=== PATIENT | male | born 1995 | race Caucasian/White ===

== ENCOUNTER 2018-02-23 16:01 | Emergency (ER) | payer MEDICAID ==
[~2018-02-23] VITALS: Ht 172.7 cm; Wt 59.0 kg
[2018-02-23 16:29] VITALS: BP 126/72
[2018-02-23] MEDS ORDERED: predniSONE 20 MG TAB PO ONE (21:30)
[2018-02-23] MEDS ORDERED: IBUPROFEN 800 MG TAB PO ONE (21:30)
== END 2018-02-23 20:59 | disposition home or self-care (01) ==
LOC: ER 16:05
DX: S93.402A Sprain of unspecified ligament of left ankle, initial encounter (principal); S43.402A Unspecified sprain of left shoulder joint, initial encounter; M62.838 Other muscle spasm; V49.49XA Driver injured in collision with other motor vehicles in traffic accident, initial encounter; Y93.I9 Activity, other involving external motion; Y92.488 Other paved roadways as the place of occurrence of the external cause; Y99.8 Other external cause status
CPT/HCPCS: 73030; 73610; 99283; J7512

== ENCOUNTER 2018-10-12 15:28 | Inpatient (IN) | payer MEDICAID ==
[~2018-10-12] VITALS: Ht 172.7 cm; Wt 54.4 kg
[2018-10-12] MEDS ORDERED: SODIUM CHLORIDE 0.9% 1,000 ML IV ONE ×2 (16:07)
[2018-10-12 16:44] LABS: Basophils # (auto) 0 uL; Basophils % (auto) 0.5 % (0.0-2.0); Eosinophils # (auto) 0 uL; Eosinophils % (auto) 0.4 % (0.0-7.0); Hematocrit 44.7 % (41.0-53.0); Hemoglobin 15.5 g/dL (13.5-17.5); Lymphocytes # (auto) 1.2 uL; Lymphocytes % (auto) 14.1 % (10.0-50.0); Mean Corpuscular Hgb Conc. 34.6 g/dL (32.0-36.0); Mean Corpuscular Volume 86.5 fL (80.0-100.0); Monocytes # (auto) 0.4 uL; Monocytes % (auto) 4.9 % (0.0-12.0); Neutrophils # (auto) 6.8 uL; Neutrophils % (auto) 80.1 % (37.0-80.0); Nucleated Red Blood Cells % 0.2 %; Platelet Count (auto) 276 10^3/uL (140-450); Red Blood Cells 5.17 10^6/uL (4.5-5.90); Red Cell Distribution Width 13.8 % (11.8-14.3); White Blood Cell 8.5 10^3/uL (4.4-10.8)
[2018-10-12 17:04] LABS: Albumin 4.2 g/dL (3.4-5.0); Calcium 8.3 mg/dL (8.5-10.1); Potassium 3.4 mmol/L (3.5-5.1)
[2018-10-12 17:07] LABS: Bilirubin, Total 0.9 mg/dL (0.2-1.0); Total Protein 7.7 g/dL (6.4-8.2)
[2018-10-12] MEDS ORDERED: InsuLIN REG 1unit/0.01ml Soln (100units/ml) SC ONE (17:15)
[2018-10-12 17:23] LABS: Urine Bacteria NONE SEEN /hpf (None Seen); Urine Blood Negative /uL (Negative); Urine Mucus FEW (None Seen); Urine Specific Gravity 1.034 (1.001-1.035); Urine WBC <1 /hpf (0 - 3)
[2018-10-12] MEDS ORDERED: NICOTINE 21MG/24 HR TOPICAL PATCH TD ONE (18:15)
[2018-10-12] MEDS ORDERED: InsuLIN R (HUMAN) 100 UNITS in SODIUM CHL 0.9% 99 ML IV SCH (18:24)
[2018-10-12] MEDS ORDERED: HYDROcodone-ACET 5/325MG TAB PO PRN (18:30)
[2018-10-12] MEDS ORDERED: MORPHINE SULF INJ 2 MG/ML SYRINGE 1ML IV PRN ×2 (18:30)
[2018-10-12] MEDS ORDERED: ONDANSETRON HCL 4 MG/2 ML VIAL IV PRN (18:30)
[2018-10-12] MEDS ORDERED: ACETAMINOPHEN 500 MG TAB PO PRN (18:30)
[2018-10-12] MEDS ORDERED: NITROGLYCERIN 0.4 MG SL TAB SL PRN (18:30)
[2018-10-12] MEDS ORDERED: InsuLIN REG 1unit/0.01ml Soln (100units/ml) IV ONE (18:30)
[2018-10-12] MEDS ORDERED: DEXTROSE (50%) 50ML SYRG IV PRN (18:30)
[2018-10-12] MEDS: SOD CHL 0.45% WITH 20MEQ KCL 1,000 ML IV SCH (19:30)
[2018-10-12] MEDS: ALPRAZolam 0.25 MG TAB PO PRN (19:31)
[2018-10-12] MEDS: ACCU-CHEK COMFORT CURVE STRIP VI SCH ×4 (20:00→23:52)
[2018-10-12 20:07] LABS: Albumin 3.6 g/dL (3.4-5.0); BUN/Creatinine Ratio 7.7; Calcium 7.4 mg/dL (8.5-10.1); Potassium 3.2 mmol/L (3.5-5.1)
[2018-10-12 20:10] LABS: Bilirubin, Total 0.6 mg/dL (0.2-1.0); Total Protein 6.9 g/dL (6.4-8.2)
[2018-10-12] MEDS: FAMOTIDINE (10MG/ML) 2ML VL IV SCH (22:16)
[2018-10-13] VITALS (8 sets, daily range): BP systolic 95–140; BP diastolic 52–69
[2018-10-13 00:48] LABS: BUN/Creatinine Ratio 9.4; Potassium 3.7 mmol/L (3.5-5.1)
[2018-10-13] MEDS ORDERED: DEXTROSE (50%) 50ML SYRG IV PRN (01:15)
--- NOTE | 2018-10-13 02:05 | NUR ---
Telemetry admit from ER AUSTIN REEVES admitted to Telemetry unit after SBAR received. Patient oriented to Zena Vera, primary RN, unit, room, bed, and unit policies regarding patient care and visiting hours. Patient now on continuous telemetry monitoring, tele box # 9 and telemetry reading on arrival to unit is sinus rhythm. Patient weighed by bedscale and encouraged to call if they need something. All questions and concerns addressed, patient verbalized understanding.
[2018-10-13] MEDS: ACCU-CHEK COMFORT CURVE STRIP VI SCH ×6 (04:07→23:20)
[2018-10-13] MEDS: InsuLIN REG 1unit/0.01ml Soln (100units/ml) SC SCH ×6 (04:07→23:25)
[2018-10-13] MEDS: SOD CHL 0.45% WITH 20MEQ KCL 1,000 ML IV SCH ×3 (05:30→23:20)
--- NOTE | 2018-10-13 07:20 | NUR ---
Opening Shift Note Assumed care of patient, awake and alert. No S/S of distress/SOB or pain. Instructed on POC and to call for assist PRN, will continue to monitor for changes Q1hr and PRN.
[2018-10-13] MEDS: FAMOTIDINE (10MG/ML) 2ML VL IV SCH ×2 (09:44→21:42)
--- NOTE | 2018-10-13 09:45 | NUR ---
AUSTIN REEVES states they want to leave the floor Against Medical Advice (AMA) to go outside and smoke. Patient encouraged to stay on floor and not smoke. Patient advised of the risks and benefits of leaving AMA. Patient verbalized understanding and signed required AMA form.
[2018-10-13 09:52] LABS: BUN/Creatinine Ratio 10.6; Calcium 7.7 mg/dL (8.5-10.1); Potassium 3.5 mmol/L (3.5-5.1)
[2018-10-13 13:30] LABS: BUN/Creatinine Ratio 12.7; Calcium 8.3 mg/dL (8.5-10.1); Potassium 3.2 mmol/L (3.5-5.1)
--- NOTE | 2018-10-13 14:30 | NUR ---
Report given to Yaima VEE.
--- NOTE | 2018-10-13 15:11 | NUR ---
UA SENT TO LAB
--- NOTE | 2018-10-13 15:20 | NUR ---
Assumed care of patient from Melissa VEE. Patient awake and alert x4, sitting up in bed. No pain noted or reported at this time. Updated on plan of care and instructed to call for assistance as needed, pt. verbalized understanding. Bed locked in lowest position, side rails up x2, call light within reach. Will continue to monitor Q1HR or PRN.
--- NOTE | 2018-10-13 15:26 | NUR ---
Nutrition Consult/assessment Notes please see attached link for complete assessment Est. Needs BW [id number] kcal (25-30 kcal/kgBW), 59-70 gms pro (1.0-1.2 gms/kgBW). Will continue to monitor pertinent labs and reassess nutrient need prn Addendum: 10/13/18 at [address] Amended: Links added.
[2018-10-13 15:42] LABS: Urine Bacteria FEW /hpf (None Seen); Urine Blood Negative /uL (Negative); Urine Specific Gravity 1.032 (1.001-1.035); Urine WBC <1 /hpf (0 - 3)
[2018-10-13 15:43] LABS: Alcohol, Urine < 3.0 mg/dL (0-5); Amphetamine Screen, Urine NEGATIVE (NEGATIVE); Barbiturate Scree,Urine NEGATIVE (NEGATIVE); Benzodiazephine Screen, Urine NEGATIVE (NEGATIVE); Cannabinoid Screen, Urine POSITIVE (NEGATIVE); Cocaine Screen, Urine NEGATIVE (NEGATIVE); Opiate Scree,Urine NEGATIVE (NEGATIVE); Phencyclidine Screen, Urine NEGATIVE (NEGATIVE)
--- NOTE | 2018-10-13 16:24 | NUR ---
Provided diabetic teaching. Patient was educated on diabetes medication management and insulin administration. Return demonstration was performed and pt. verbalized understanding.
--- NOTE | 2018-10-13 19:49 | NUR ---
Opening Note Assumed pt care from day shift nurse. Pt is a/ox4 with no s/s of distress or SOB. Pt is currently laying in bed with no complaints and family at bedside. Discussed POC with pt and asked if pt had any questions regarding newly dx of DM; pt stated he did not at this time. Safety measures maintained with call light within reach, bed in lowest position and side rails up. Will continue to monitor for changes q1hr and prn.
--- NOTE | 2018-10-13 20:25 | NUR ---
Elevated Blood Sugar Blood sugar or 403 on 1999 assessment, rechecked; 413. Administered 10 units of regular insulin, pagehanna salguero. Addendum: 10/13/18 at 2216 by KAYLA CRUZ RN RN Hospitalist paged back, at this time after receiving the 10 units of regular insulin, BS is now 299. Hospitalist informed of new blood sugar, no new orders or implementations initiated. Will continue to monitor.
[2018-10-13] MEDS: ALPRAZolam 0.25 MG TAB PO PRN (21:42)
[2018-10-13] MEDS: INSULIN LANTUS (GLARGINE) 1 /0.01ml (100units/ml) SC SCH (21:42)
--- NOTE | 2018-10-13 22:16 | NUR ---
Pt off Unit to Smoke Pt off unit to smoke. AMA to smoke is in chart; instructed pt to come back to unit within 30 minutes. Pt verbalized understanding. Addendum: 10/13/18 at 2243 by KAYLA CRUZ RN RN Pt back on unit
[2018-10-14] MEDS: InsuLIN REG 1unit/0.01ml Soln (100units/ml) SC SCH ×5 (03:29→22:07)
[2018-10-14] MEDS: ACCU-CHEK COMFORT CURVE STRIP VI SCH ×5 (03:29→22:06)
[2018-10-14 05:00] VITALS: BP 106/59
[2018-10-14 06:05] LABS: Basophils # (auto) 0 uL; Basophils % (auto) 0.5 % (0.0-2.0); Eosinophils # (auto) 0.2 uL; Eosinophils % (auto) 2.7 % (0.0-7.0); Hematocrit 37.7 % (41.0-53.0); Hemoglobin 13.1 g/dL (13.5-17.5); Lymphocytes # (auto) 1.8 uL; Lymphocytes % (auto) 29.9 % (10.0-50.0); Mean Corpuscular Hgb Conc. 34.8 g/dL (32.0-36.0); Mean Corpuscular Volume 86.2 fL (80.0-100.0); Monocytes # (auto) 0.6 uL; Monocytes % (auto) 9.5 % (0.0-12.0); Neutrophils # (auto) 3.4 uL; Neutrophils % (auto) 57.4 % (37.0-80.0); Platelet Count (auto) 194 10^3/uL (140-450); Red Blood Cells 4.37 10^6/uL (4.5-5.90); Red Cell Distribution Width 14.1 % (11.8-14.3); White Blood Cell 5.9 10^3/uL (4.4-10.8)
[2018-10-14 06:55] LABS: Calcium 7.9 mg/dL (8.5-10.1)
[2018-10-14 07:00] LABS: Magnesium 2.2 mg/dL (1.6-2.6)
[2018-10-14 07:04] LABS: Potassium 2.9 mmol/L (3.5-5.1)
--- NOTE | 2018-10-14 07:06 | NUR ---
Critical Lab Value Reported Melissa from lab reported potassium value of 2.9 Paged hospitalist, awaiting a call back for further instructions.
[2018-10-14] MEDS: SOD CHL 0.45% WITH 20MEQ KCL 1,000 ML IV SCH (08:09)
[2018-10-14 09:00] VITALS: BP 108/62
--- NOTE | 2018-10-14 09:01 | NUR ---
PT EDUCATED ON INSULIN ADMINISTRATION, QUESTIONS AND CONCERNS ADDRESSED. PT RETURNED DEMONSTRATION ON INSULIN SQ ADMINISTRATION. SMOKING CESSATION COUNSELING. PT IS RECEPTIVE AND COOPERATIVE OF CARE. BED LOCKED AND IN LOWEST POSITION. CALL LIGHT WITHIN REACH. WILL CONTINUE TO MONITOR.
[2018-10-14] MEDS: FAMOTIDINE (10MG/ML) 2ML VL IV SCH ×2 (09:02→22:07)
[2018-10-14] MEDS ORDERED: POTASSIUM CHL 20 Meq TABLET PO ONE (09:30)
[2018-10-14] MEDS ORDERED: DEXTROSE (50%) 50ML SYRG IV PRN (09:45)
[2018-10-14] MEDS ORDERED: POTASSIUM CHL 20MEQ/100ML 100 ML IV ONE (10:00)
[2018-10-14 13:00] VITALS: BP 111/70
[2018-10-14 17:26] VITALS: BP 108/67
--- NOTE | 2018-10-14 19:43 | NUR ---
Opening Note Assumed pt care from day shift nurse. Pt is a/ox4 with no s/s of distress or SOB. Pt is currently sitting up in bed with no complaints accompanied by family members. Discussed POC with pt; pt verbalized understanding. Asked if pt had any additional questions regarding his new DM diagnosis; pt stated he did not. Safety measures maintained with side rails up, bed in lowest position and call light within reach. Will continue to monitor for changes q1hr and prn.
[2018-10-14 21:24] VITALS: BP 115/67
[2018-10-14] MEDS: INSULIN LANTUS (GLARGINE) 1 /0.01ml (100units/ml) SC SCH (22:07)
[2018-10-14] MEDS: ALPRAZolam 0.25 MG TAB PO PRN (22:07)
[2018-10-15 05:28] VITALS: BP 92/51
[2018-10-15] MEDS: InsuLIN REG 1unit/0.01ml Soln (100units/ml) SC SCH ×4 (06:17→21:20)
[2018-10-15] MEDS: ACCU-CHEK COMFORT CURVE STRIP VI SCH ×4 (06:17→21:21)
[2018-10-15 07:18] LABS: Calcium 7.9 mg/dL (8.5-10.1)
[2018-10-15 07:20] LABS: BUN/Creatinine Ratio 27.5
[2018-10-15 07:24] LABS: Potassium 2.9 mmol/L (3.5-5.1)
--- NOTE | 2018-10-15 07:32 | NUR ---
Critical Lab Value Lab reported Potassium value of 2.9. Hospitalist paged and orders were given. Will input orders and endorse to day shift.
[2018-10-15] MEDS ORDERED: POTASSIUM CHL 20MEQ/100ML 100 ML IV SCH (07:45)
[2018-10-15] MEDS ORDERED: POTASSIUM CHL 20 Meq TABLET PO ONE (07:45)
--- NOTE | 2018-10-15 08:24 | NUR ---
Opening Shift Note Assumed care of patient. Patient is awake and alert. No S/S of distress/SOB or pain. Instructed on POC and to call for assist PRN, will continue to monitor. Bed locked in lowest position and bed rails up x2. Call light within reach.
--- NOTE | 2018-10-15 08:50 | NUR ---
Patient off unit to smoke
[2018-10-15 09:22] VITALS: BP 91/52
[2018-10-15] MEDS ORDERED: INSULIN LANTUS (GLARGINE) 1 /0.01ml (100units/ml) SC ONE (10:30)
[2018-10-15] MEDS: FAMOTIDINE (10MG/ML) 2ML VL IV SCH (10:56)
[2018-10-15] MEDS: POTASSIUM CHL 20MEQ/100ML 100 ML IV SCH ×2 (11:33→15:14)
[2018-10-15 12:36] VITALS: BP 113/73
[2018-10-15] MEDS ORDERED: NICOTINE 21MG/24 HR TOPICAL PATCH TD ONE (13:45)
--- NOTE | 2018-10-15 14:08 | NUR ---
IV removal IV DC'd with clean sterile technique, catheter fully intact. Pressure dressing applied to site. Patient tolerated well. NOTE: Iv site tender and leaking.
[2018-10-15 16:40] VITALS: BP 108/64
--- NOTE | 2018-10-15 19:46 | NUR ---
Opening shift note Pt in bed alert and oriented x 4, verbally coherent able to make needs known. Patient denies pain or discomfort at this time plan of care discussed, patient verbalized understanding. All needs attended, family at bedside, will continue to monitor.
[2018-10-15] MEDS: ALPRAZolam 0.25 MG TAB PO PRN (21:21)
--- NOTE | 2018-10-15 21:22 | NUR ---
Patient has two passwords set up [place] and/or Fitz.
[2018-10-15 21:43] VITALS: BP 110/65
[2018-10-15] MEDS ORDERED: INSULIN LANTUS (GLARGINE) 1 /0.01ml (100units/ml) SC SCH (22:00)
--- NOTE | 2018-10-16 00:31 | NUR ---
Patient anxious with his blood sugar level, requested nurse to have his sugar checked. Blood sugar at 257mg/dl. Patient stable no signs of hyperglycemia. Will be rechecking blood sugar at 0700h as ordered.
[2018-10-16 05:24] VITALS: BP 94/50
[2018-10-16] MEDS: InsuLIN REG 1unit/0.01ml Soln (100units/ml) SC SCH ×2 (06:19→11:51)
[2018-10-16] MEDS: ACCU-CHEK COMFORT CURVE STRIP VI SCH ×2 (06:20→11:51)
[2018-10-16 06:35] LABS: Potassium 3.2 mmol/L (3.5-5.1)
--- NOTE | 2018-10-16 07:01 | NUR ---
Patient's blood sugar at 149mg/dl. Patient refused Insulin coverae at this time.
[2018-10-16 08:00] VITALS: BP 105/56
[2018-10-16 09:00] VITALS: BP 105/56
[2018-10-16] MEDS ORDERED: NICOTINE 21MG/24 HR TOPICAL PATCH TD SCH (10:00)
[2018-10-16] MEDS ORDERED: FAMOTIDINE 20 MG TAB PO SCH (10:00)
[2018-10-16 13:00] VITALS: BP 109/67
--- NOTE | 2018-10-16 13:51 | NUR ---
Nutrition Follow-up Notes Wt. 54.4 kg Pt. visit: Endorses excellent appetite and no GI distress associated with current diet. Documented PO 100% x 3 days. Tolerating CCHO diet well. Est. Needs (based on previous assessment) BEE in Kcals: Using Current wt Calories/Kcals/Kg 25-30 Kcals Calculated 1770 Proteing/K.0-1.2 Protein Calculated 59 Labs: H/H 13.1L/37.7L, K 3.2L, Glu 150, most POC glu readings >180 mg/dL x 3 days Skin: Frank 22 low risk GI: BM x 3 today per pt PES: Altered nutrition related lab values r/t current medical condition aeb elev A1c, hypocalcemia (ongoing) Plan of care: Monitor PO intake/tolerance, labs, weight trends, skin integrity. F/U 3-5 days. Recommendations: 1) Continue CCHO diet as ordered and as tolerated.
[2018-10-16] MEDS ORDERED: POTASSIUM CHL 20 Meq TABLET PO ONE (14:45)
[2018-10-16 15:43] VITALS: BP 109/67
--- NOTE | 2018-10-16 16:40 | NUR ---
Discharge instructions given as ordered. Encourage to follow up with PMD as instructed. All questions and concerns addressed. Patient verbalized understanding. IV removed with catheter intact, pressure dressing applied. Telemetry unit returned to [facility]. Patient ambulated to vehicle with all personal belongings, accompanied by staff and family member. No distress noted at time of departure.
== END 2018-10-16 17:00 | disposition home or self-care (01) | DRG 420 ==
LOC: ER 15:28 → TELE 15:29 → TELE-EAST 10-13 02:01
PROVIDERS: ADMIT Nurse Practitioner Acute Care; ATTEND Internal Medicine
DX: E10.10 Type 1 diabetes mellitus with ketoacidosis without coma (principal); E86.0 Dehydration; E87.6 Hypokalemia; F19.10 Other psychoactive substance abuse, uncomplicated; F17.210 Nicotine dependence, cigarettes, uncomplicated; Z83.3 Family history of diabetes mellitus; Z71.6 Tobacco abuse counseling; Z71.51 Drug abuse counseling and surveillance of drug abuser
CPT/HCPCS: 36415; 71045; 80048; 80053; 80061; 80307; 81001; 82010; 82962; 83036; 83735; 83930; 84100; 84132; 85025; 96365; 96366; 96372; G0378; J1815; J3480; J3490

== ENCOUNTER 2020-10-02 06:57 | Inpatient (IN) | payer BC, MEDICAID ==
[~2020-10-02] VITALS: Ht 175.3 cm; Wt 63.5 kg
[2020-10-02 07:57] LABS: Urine Bacteria NONE SEEN /hpf (None Seen); Urine Blood TRACE /uL (Negative); Urine Mucus FEW (None Seen); Urine Specific Gravity 1.017 (1.001-1.035); Urine WBC <1 /hpf (0 - 3)
[2020-10-02] MEDS: SODIUM CHLORIDE 0.9% 1,000 ML IV SCH ×4 (08:07→20:55)
[2020-10-02] MEDS: INSULIN LANTUS (GLARGINE) 1 /0.01ml (100units/ml) SC ONE ×2 (08:08→08:24)
[2020-10-02] MEDS ORDERED: INSULIN LANTUS (GLARGINE) 1 /0.01ml (100units/ml) SC ONE (08:15)
[2020-10-02] MEDS ORDERED: InsuLIN R (HUMAN) 100 UNITS in SODIUM CHL 0.9% 99 ML IV SCH ×4 (08:15)
[2020-10-02] MEDS ORDERED: DEXTROSE (50%) 50ML SYRG IV PRN ×3 (08:15→19:00)
[2020-10-02 08:16] LABS: Alcohol, Urine < 3.0 mg/dL (0-10); Amphetamine Screen, Urine NEGATIVE (NEGATIVE); Barbiturate Scree,Urine NEGATIVE (NEGATIVE); Benzodiazephine Screen, Urine NEGATIVE (NEGATIVE); Cannabinoid Screen, Urine NEGATIVE (NEGATIVE); Cocaine Screen, Urine NEGATIVE (NEGATIVE); Opiate Scree,Urine NEGATIVE (NEGATIVE); Phencyclidine Screen, Urine NEGATIVE (NEGATIVE)
[2020-10-02] MEDS ORDERED: SODIUM BICARBONATE 8.4 % INJ 50ML VIAL IV ONE ×2 (08:39→08:45)
[2020-10-02] MEDS ORDERED: SODIUM BICARB 50ML SYR 150 ML in SODIUM CHLORIDE 0.9% 1,000 ML IV ONE (08:45)
[2020-10-02 08:47] LABS: Hemoglobin 17.4 g/dL (13.5-17.5); Mean Corpuscular Hemoglobin 31.9 pg (28.0-32.0); Mean Corpuscular Hgb Conc. 30.4 g/dL (32.0-36.0); Mean Corpuscular Volume 104.9 fL (80.0-100.0); Red Blood Cells 5.46 10^6/uL (4.5-5.90); Red Cell Distribution Width 14.1 % (11.8-14.3)
[2020-10-02 08:51] LABS: Hematocrit 57.3 % (41.0-53.0)
[2020-10-02 08:52] LABS: White Blood Cell 41.2 10^3/uL (4.4-10.8)
[2020-10-02 08:54] LABS: Basophils % (manual) 0 (0.0-2.0); Blast Cells 0; Myelocytes % 0; Promyelocytes % 0; Reactive Lymphocytes 0
[2020-10-02] MEDS: ACCU-CHEK COMFORT CURVE STRIP VI SCH ×9 (08:57→23:51)
[2020-10-02 08:59] LABS: Albumin 4.6 g/dL (3.4-5.0); Calcium 7.9 mg/dL (8.5-10.1)
[2020-10-02] MEDS ORDERED: ACCU-CHEK COMFORT CURVE STRIP VI SCH (09:00)
[2020-10-02 09:05] LABS: BUN/Creatinine Ratio 11.1; Bilirubin, Total 0.3 mg/dL (0.2-1.0); Total Protein 8.4 g/dL (6.4-8.2)
[2020-10-02 09:06] LABS: Potassium 6.2 mmol/L (3.5-5.1)
[2020-10-02 09:37] LABS: Band Neutrophils % (manual) 12; Eosinophils % (manual) 1 (0-7); Lymphocytes % (manual) 5 (10.0-50.0); Metamyelocytes % 1; Monocytes % (manual) 4 (0-12)
[2020-10-02] MEDS ORDERED: ONDANSETRON HCL 4 MG/2 ML VIAL IV PRN (10:00)
[2020-10-02] MEDS ORDERED: MORPHINE SULF INJ 2 MG/ML SYRINGE 1ML IV PRN ×2 (10:00→12:30)
[2020-10-02] MEDS: ENOXAPARIN SOD 30 MG/0.3 ML SYRINGE SC SCH (11:28)
[2020-10-02] MEDS ORDERED: LORazepam 2MG/ML-1ML VIAL IV PRN (12:00)
[2020-10-02] MEDS ORDERED: SODIUM CHLORIDE 0.9% 1,000 ML IV SCH (12:15)
[2020-10-02] MEDS ORDERED: NITROGLYCERIN 0.4 MG SL TAB SL PRN (12:30)
[2020-10-02 15:31] LABS: BUN/Creatinine Ratio 17.8; Calcium 7.1 mg/dL (8.5-10.1); Potassium 3.7 mmol/L (3.5-5.1)
[2020-10-02] MEDS: InsuLIN REG 1unit/0.01ml Soln (100units/ml) SC SCH ×2 (20:24→23:52)
[2020-10-02 22:00] VITALS: BP 117/70
[2020-10-03] MEDS: SODIUM CHLORIDE 0.9% 1,000 ML IV SCH ×3 (03:37→16:55)
[2020-10-03] MEDS: ACCU-CHEK COMFORT CURVE STRIP VI SCH ×4 (03:37→17:55)
[2020-10-03] MEDS: InsuLIN REG 1unit/0.01ml Soln (100units/ml) SC SCH ×4 (03:42→17:55)
[2020-10-03 05:00] VITALS: BP 102/48
[2020-10-03 05:54] LABS: Albumin 2.6 g/dL (3.4-5.0); Calcium 7.6 mg/dL (8.5-10.1); Magnesium 2.1 mg/dL (1.6-2.6); Potassium 3.1 mmol/L (3.5-5.1)
[2020-10-03 06:00] LABS: BUN/Creatinine Ratio 21.8; Bilirubin, Total 0.3 mg/dL (0.2-1.0); Phosphorus 1.8 mg/dL (2.5-4.90); Total Protein 5.6 g/dL (6.4-8.2)
[2020-10-03 07:40] LABS: Basophils # (auto) 0.1 10 ^3/uL (0-0.2); Basophils % (auto) 0.6 % (0.0-2.0); Eosinophils # (auto) 0.1 10 ^3/uL (0-0.8); Eosinophils % (auto) 0.5 % (0.0-7.0); Hematocrit 38.2 % (41.0-53.0); Hemoglobin 13.3 g/dL (13.5-17.5); Lymphocytes # (auto) 0.8 10 ^3/uL (0.4-5.4); Lymphocytes % (auto) 6.8 % (10.0-50.0); Mean Corpuscular Hemoglobin 31.7 pg (28.0-32.0); Mean Corpuscular Hgb Conc. 34.8 g/dL (32.0-36.0); Mean Corpuscular Volume 91.3 fL (80.0-100.0); Monocytes # (auto) 1.2 10 ^3/uL (0-1.3); Monocytes % (auto) 9.4 % (0.0-12.0); Neutrophils # (auto) 10.3 10 ^3/uL (1.6-8.6); Neutrophils % (auto) 82.7 % (37.0-80.0); Red Blood Cells 4.18 10^6/uL (4.5-5.90); Red Cell Distribution Width 12.5 % (11.8-14.3); White Blood Cell 12.4 10^3/uL (4.4-10.8)
[2020-10-03 09:00] VITALS: BP 103/65
[2020-10-03] MEDS: ENOXAPARIN SOD 30 MG/0.3 ML SYRINGE SC SCH (09:29)
[2020-10-03] MEDS ORDERED: INSULIN LANTUS (GLARGINE) 1 /0.01ml (100units/ml) SC SCH ×3 (10:00→22:00)
[2020-10-03 13:00] VITALS: BP 114/66
[2020-10-03] MEDS ORDERED: NYS5LQ MT (15:21)
[2020-10-03] MEDS ORDERED: FAMO20TA10 PO (15:22)
[2020-10-03 16:08] VITALS: BP 142/65
[2020-10-03 17:00] VITALS: BP 120/63
== END 2020-10-03 18:55 | disposition home or self-care (01) | DRG 638 ==
LOC: ER 06:57 → EDBD 06:57 → TELE 12:28 → CENTRAL 22:35
PROVIDERS: ADMIT Nurse Practitioner Acute Care; ATTEND Hospitalist
DX: E11.10 Type 2 diabetes mellitus with ketoacidosis without coma (principal); N17.9 Acute kidney failure, unspecified; R64 Cachexia; R65.10 Systemic inflammatory response syndrome (SIRS) of non-infectious origin without acute organ dysfunction; Z20.822 Contact with and (suspected) exposure to COVID-19; E86.0 Dehydration; E87.5 Hyperkalemia; F17.210 Nicotine dependence, cigarettes, uncomplicated; Z79.4 Long term (current) use of insulin; Z83.3 Family history of diabetes mellitus; Z68.20 Body mass index [BMI] 20.0-20.9, adult
CPT/HCPCS: 36415; 36600; 71045; 80048; 80053; 80307; 81001; 82010; 82805; 82962; 83036; 83735; 83880; 83930; 84100; 85007; 85027; 85379; 87081; 87426; 93005; 96365; 96375; 99291; G0378; J1815

== ENCOUNTER 2020-11-27 03:17 | Inpatient (IN) | payer BC, MEDICAID ==
[~2020-11-27] VITALS: Ht 177.8 cm; Wt 65.7 kg
[~2020-11-27 03:17] MED LIST: FAMO20TA10 PO; NYS5LQ MT
[2020-11-27] MEDS ORDERED: SODIUM CHLORIDE 0.9% 1,000 ML IV ONE ×5 (03:30→05:30)
[2020-11-27] MEDS ORDERED: ONDANSETRON HCL 4 MG/2 ML VIAL IV ONE (03:45)
[2020-11-27] MEDS ORDERED: KETOROLAC TROMETH 30 MG/ML 1ML VIAL IV ONE (04:00)
[2020-11-27 04:42] LABS: Red Cell Distribution Width 14.9 % (11.8-14.3)
[2020-11-27 04:45] LABS: Mean Corpuscular Hemoglobin 31.7 pg (28.0-32.0); Mean Corpuscular Hgb Conc. 30.4 g/dL (32.0-36.0); Mean Corpuscular Volume 104.4 fL (80.0-100.0); Red Blood Cells 5.37 10^6/uL (4.5-5.90)
[2020-11-27 04:45] LABS: Urine Amorphous Crystal FEW /hpf (None Seen); Urine Bacteria NONE SEEN /hpf (None Seen); Urine Blood TRACE /uL (Negative); Urine Specific Gravity 1.019 (1.001-1.035); Urine WBC 1 /hpf (0 - 3)
[2020-11-27 04:51] LABS: INR 0.96 (0.9-1.15); Partial Thromboplastin Time 32.3 sec (23.6-33.0)
[2020-11-27 04:54] LABS: Hematocrit 56.1 % (41.0-53.0)
[2020-11-27 04:58] LABS: Basophils % (manual) 0 (0.0-2.0); Blast Cells 0; Eosinophils % (manual) 0 (0-7); Metamyelocytes % 0; Promyelocytes % 0; Reactive Lymphocytes 0
[2020-11-27 05:02] LABS: Alanine Aminotransferase 36 U/L (16-61); Albumin 4.6 g/dL (3.4-5.0); Anion Gap 25 (5-15); Blood Urea Nitrogen 22 mg/dL (7-18); Calcium 8.2 mg/dL (8.5-10.1); Chloride 101 mmol/L (98-107); Lipase 222 U/L (73-393); Magnesium 3.1 mg/dL (1.6-2.6); Sodium 131 mmol/L (136-145)
[2020-11-27 05:11] LABS: Alkaline Phosphatase 145 U/L (45-117); Aspartate Aminotransferase 31 U/L (15-37); BUN/Creatinine Ratio 15.1; Bilirubin, Total 0.5 mg/dL (0.2-1.0); GFR African American 77 mL/min; GFR Non-African American 64 mL/min; Total Protein 8.5 g/dL (6.4-8.2)
[2020-11-27 05:17] LABS: Lactic Acid w/Reflex 2.3 mmol/L (0.4-2.0)
[2020-11-27 05:20] LABS: Carbon Dioxide 5 mmol/L (21-32); Glucose 532 mg/dL (74-106)
[2020-11-27] MEDS ORDERED: INSULIN LANTUS (GLARGINE) 1 /0.01ml (100units/ml) SC ONE (05:30)
[2020-11-27] MEDS ORDERED: InsuLIN R (HUMAN) 100 UNITS in SODIUM CHL 0.9% 99 ML IV SCH ×2 (05:30→06:00)
[2020-11-27] MEDS ORDERED: CEFTRIAXONE SODIUM 2 GM in D5W 5% 50 ML IV ONE (05:30)
[2020-11-27] MEDS ORDERED: DEXTROSE (50%) 50ML SYRG IV PRN ×3 (05:30→22:45)
[2020-11-27] MEDS: SODIUM CHLORIDE 0.9% 1,000 ML IV SCH ×2 (05:30→07:54)
[2020-11-27] MEDS ORDERED: InsuLIN REG 1unit/0.01ml Soln (100units/ml) ONE (05:38)
[2020-11-27] MEDS ORDERED: [UNRECOGNIZED DRUG - OTHER] IV ONE ×2 (06:00)
[2020-11-27] MEDS: ACCU-CHEK COMFORT CURVE STRIP VI SCH ×14 (06:00→21:44)
[2020-11-27] MEDS ORDERED: SODIUM BICARB IV ONE ×2 (06:00)
[2020-11-27] MEDS ORDERED: SODIUM BICARBONATE 8.4 % INJ 50ML VIAL IV ONE (06:10)
[2020-11-27] MEDS ORDERED: CALCIUM GLUC 1,000mg/50ml-NS 50 ML IV ONE (06:15)
[2020-11-27 06:50] LABS: Band Neutrophils % (manual) 22; Lymphocytes % (manual) 9 (10.0-50.0); Monocytes % (manual) 2 (0-12); Myelocytes % 4
[2020-11-27] MEDS ORDERED: SODIUM CHLORIDE 0.9% 1,000 ML IV SCH ×2 (09:30→11:30)
[2020-11-27] MEDS ORDERED: NITROGLYCERIN 0.4 MG SL TAB SL PRN (10:45)
[2020-11-27] MEDS ORDERED: MORPHINE SULFATE INJECTION 2 MG/ML SYRG IV PRN (10:45)
[2020-11-27 11:20] LABS: BUN/Creatinine Ratio 16.7; Calcium 7.4 mg/dL (8.5-10.1); Potassium 4.1 mmol/L (3.5-5.1)
[2020-11-27] MEDS: D5W/SOD CHL 0.45% 1,000 ML IV SCH ×2 (12:15→21:44)
[2020-11-27 20:36] LABS: Calcium 8.1 mg/dL (8.5-10.1); Potassium 3.7 mmol/L (3.5-5.1)
[2020-11-27 20:38] LABS: BUN/Creatinine Ratio 13.5
[2020-11-28] MEDS: ACCU-CHEK COMFORT CURVE STRIP VI SCH ×5 (00:55→16:27)
[2020-11-28] MEDS: InsuLIN REG 1unit/0.01ml Soln (100units/ml) SC SCH ×5 (00:56→16:27)
[2020-11-28] MEDS ORDERED: INSLISPI SC (01:29)
[2020-11-28] MEDS ORDERED: INSU100I57 SC (01:29)
[2020-11-28 05:21] LABS: Basophils # (auto) 0 10 ^3/uL (0-0.2); Basophils % (auto) 0.1 % (0.0-2.0); Eosinophils # (auto) 0 10 ^3/uL (0-0.8); Eosinophils % (auto) 0.2 % (0.0-7.0); Hematocrit 40.8 % (41.0-53.0); Hemoglobin 14.2 g/dL (13.5-17.5); Lymphocytes # (auto) 0.9 10 ^3/uL (0.4-5.4); Lymphocytes % (auto) 9.4 % (10.0-50.0); Mean Corpuscular Hemoglobin 32.6 pg (28.0-32.0); Mean Corpuscular Hgb Conc. 34.9 g/dL (32.0-36.0); Mean Corpuscular Volume 93.6 fL (80.0-100.0); Monocytes # (auto) 0.7 10 ^3/uL (0-1.3); Monocytes % (auto) 7.6 % (0.0-12.0); Neutrophils # (auto) 7.6 10 ^3/uL (1.6-8.6); Neutrophils % (auto) 82.7 % (37.0-80.0); Red Blood Cells 4.36 10^6/uL (4.5-5.90); Red Cell Distribution Width 13.5 % (11.8-14.3); White Blood Cell 9.2 10^3/uL (4.4-10.8)
[2020-11-28 05:34] LABS: Albumin 3.1 g/dL (3.4-5.0); Calcium 8.3 mg/dL (8.5-10.1); Magnesium 2.1 mg/dL (1.6-2.6); Potassium 3.5 mmol/L (3.5-5.1)
[2020-11-28 05:38] LABS: BUN/Creatinine Ratio 15.7; Bilirubin, Total 0.5 mg/dL (0.2-1.0); Phosphorus 1.6 mg/dL (2.5-4.90); Total Protein 6.1 g/dL (6.4-8.2)
[2020-11-28 09:00] VITALS: BP 116/70
[2020-11-28] MEDS ORDERED: INSULIN LANTUS (GLARGINE) 1 /0.01ml (100units/ml) SC SCH (10:00)
[2020-11-28] MEDS ORDERED: PANTOPRAZOLE 40 MG/10 ML VIAL INJ IV SCH (10:00)
[2020-11-28] MEDS ORDERED: POTASSIUM PHOSPHATE 22 MEQ in SODIUM CHL 0.9% 100 ML IV ONE (11:15)
[2020-11-28 12:59] VITALS: BP 105/65
[2020-11-28 17:00] VITALS: BP 121/68
[2020-11-28 18:43] VITALS: BP 121/68
== END 2020-11-28 17:14 | disposition home health service (06) | DRG 637 ==
LOC: ER 03:17 → EDBD 03:17 → TELE 10:45 → TELE-WESTW 23:39
PROVIDERS: ADMIT Nurse Practitioner Acute Care; ATTEND Internal Medicine
DX: E10.10 Type 1 diabetes mellitus with ketoacidosis without coma (principal); N17.0 Acute kidney failure with tubular necrosis; R65.10 Systemic inflammatory response syndrome (SIRS) of non-infectious origin without acute organ dysfunction; D72.829 Elevated white blood cell count, unspecified; E87.5 Hyperkalemia; K21.9 Gastro-esophageal reflux disease without esophagitis; Z20.822 Contact with and (suspected) exposure to COVID-19; R07.89 Other chest pain; F17.210 Nicotine dependence, cigarettes, uncomplicated; K29.70 Gastritis, unspecified, without bleeding; Z83.3 Family history of diabetes mellitus; Z91.19 Patient's noncompliance with other medical treatment and regimen
CPT/HCPCS: 36415; 36600; 71045; 80048; 80053; 81001; 82010; 82805; 82962; 83036; 83605; 83690; 83735; 83930; 84100; 84484; 85007; 85025; 85027; 85610; 85730; 87040; 87426; 93005; 96361; 96374; 96375; 99291; C9113; G0378; J0696; J1815; J1885; J2405; J7060

== ENCOUNTER 2020-12-31 03:14 | Inpatient (IN) | payer BC, MEDICAID ==
[~2020-12-31] VITALS: Ht 172.7 cm; Wt 59.0 kg
[~2020-12-31 03:14] MED LIST changes: +INSLISPI SC; +INSU100I57 SC
[2020-12-31] MEDS ORDERED: SODIUM CHLORIDE 0.9% 1,000 ML IV ONE ×2 (04:30→06:00)
[2020-12-31 05:00] LABS: Hemoglobin 18.4 g/dL (13.5-17.5); Mean Corpuscular Hemoglobin 31.5 pg (28.0-32.0); Mean Corpuscular Hgb Conc. 31.2 g/dL (32.0-36.0); Mean Corpuscular Volume 101.1 fL (80.0-100.0); Red Blood Cells 5.85 10^6/uL (4.5-5.90); Red Cell Distribution Width 14.3 % (11.8-14.3)
[2020-12-31] MEDS ORDERED: ONDANSETRON HCL 4 MG/2 ML VIAL IV ONE (05:00)
[2020-12-31 05:09] LABS: Hematocrit 59.1 % (41.0-53.0)
[2020-12-31 05:11] LABS: White Blood Cell 33.4 10^3/uL (4.4-10.8)
[2020-12-31 05:12] LABS: Basophils % (manual) 0 (0.0-2.0); Blast Cells 0; Eosinophils % (manual) 0 (0-7); Metamyelocytes % 0; Promyelocytes % 0; Reactive Lymphocytes 0
[2020-12-31 05:13] LABS: Calcium 8.8 mg/dL (8.5-10.1); Magnesium 3.1 mg/dL (1.6-2.6)
[2020-12-31 05:17] LABS: BUN/Creatinine Ratio 17.7; Bilirubin, Total 0.5 mg/dL (0.2-1.0); Phosphorus 7.4 mg/dL (2.5-4.90); Total Protein 9.5 g/dL (6.4-8.2)
[2020-12-31 05:31] LABS: Potassium 6.3 mmol/L (3.5-5.1)
[2020-12-31 05:56] LABS: Band Neutrophils % (manual) 14; Lymphocytes % (manual) 4 (10.0-50.0); Monocytes % (manual) 1 (0-12); Myelocytes % 3
[2020-12-31] MEDS ORDERED: INSULIN LANTUS (GLARGINE) 1 /0.01ml (100units/ml) SC ONE ×2 (06:00→09:00)
[2020-12-31] MEDS ORDERED: DEXTROSE (50%) 50ML SYRG IV PRN (06:00)
[2020-12-31] MEDS ORDERED: InsuLIN REG 1unit/0.01ml Soln (100units/ml) IV ONE (06:00)
[2020-12-31 06:57] LABS: Lactic Acid w/Reflex 2.3 mmol/L (0.4-2.0)
[2020-12-31] MEDS: SODIUM CHLORIDE 0.9% 1,000 ML IV SCH ×4 (07:00→21:00)
[2020-12-31] MEDS: InsuLIN R (HUMAN) 100 UNITS in SODIUM CHL 0.9% 99 ML IV SCH (08:19)
[2020-12-31] MEDS ORDERED: NITROGLYCERIN 0.4 MG SL TAB SL PRN ×2 (08:30→09:45)
[2020-12-31] MEDS ORDERED: MORPHINE SULFATE INJECTION 2 MG/ML SYRG IV PRN ×3 (08:30→09:45)
[2020-12-31 08:53] LABS: Urine Bacteria NONE SEEN /hpf (None Seen); Urine Blood TRACE /uL (Negative); Urine Mucus FEW (None Seen); Urine Specific Gravity 1.021 (1.001-1.035); Urine WBC 1 /hpf (0 - 3)
[2020-12-31] MEDS: ACCU-CHEK COMFORT CURVE STRIP VI SCH ×11 (09:00→23:52)
[2020-12-31] MEDS ORDERED: cefTRIAXone 1GM/50ML D5W 50 ML IV ONE (09:00)
[2020-12-31] MEDS ORDERED: cefTRIAXone 1GM/50ML D5W 50 ML IV SCH (09:00)
[2020-12-31] MEDS ORDERED: PROMETHAZINE HCL 25 MG/ML 1ML IV PRN (09:00)
[2020-12-31] MEDS ORDERED: TEMAZEPAM 15 MG CAP PO PRN (09:00)
[2020-12-31] MEDS ORDERED: traMADol HCL 50 MG TAB PO PRN (09:00)
[2020-12-31] MEDS ORDERED: ACETAMINOPHEN 500 MG TAB PO PRN (09:00)
[2020-12-31 09:39] LABS: Amylase 197 U/L (25-115)
[2020-12-31 09:44] LABS: INR 0.95 (0.9-1.15)
[2020-12-31 09:46] LABS: Lipase 1492 U/L (73-393)
[2020-12-31] MEDS ORDERED: SODIUM CHLORIDE 0.9% 1,000 ML IV SCH ×2 (10:00→12:00)
[2020-12-31 12:15] LABS: Calcium 7.6 mg/dL (8.5-10.1); Potassium 4.7 mmol/L (3.5-5.1)
[2020-12-31 12:17] LABS: BUN/Creatinine Ratio 16.9
[2020-12-31 17:50] LABS: BUN/Creatinine Ratio 21.8
[2020-12-31 18:17] LABS: Potassium 2.7 mmol/L (3.5-5.1)
[2020-12-31 19:16] LABS: BUN/Creatinine Ratio 13.3; Calcium 7.9 mg/dL (8.5-10.1)
[2020-12-31 20:00] VITALS: BP 113/74
[2020-12-31 21:00] VITALS: BP 102/69
[2020-12-31 22:00] VITALS: BP 105/66
[2020-12-31 23:00] VITALS: BP 93/57
[2021-01-01] VITALS (7 sets, daily range): BP systolic 94–117; BP diastolic 53–71
[2021-01-01] MEDS: ACCU-CHEK COMFORT CURVE STRIP VI SCH ×12 (01:30→22:00)
[2021-01-01 03:22] LABS: Calcium 7.7 mg/dL (8.5-10.1); Potassium 3.3 mmol/L (3.5-5.1)
[2021-01-01] MEDS: SODIUM CHLORIDE 0.9% 1,000 ML IV SCH ×3 (04:30→17:51)
[2021-01-01 05:32] LABS: Basophils # (auto) 0 10 ^3/uL (0-0.2); Basophils % (auto) 0.4 % (0.0-2.0); Eosinophils # (auto) 0 10 ^3/uL (0-0.8); Eosinophils % (auto) 0.3 % (0.0-7.0); Hematocrit 44.6 % (41.0-53.0); Hemoglobin 15.3 g/dL (13.5-17.5); Lymphocytes % (auto) 9.3 % (10.0-50.0); Mean Corpuscular Hemoglobin 32.3 pg (28.0-32.0); Mean Corpuscular Hgb Conc. 34.4 g/dL (32.0-36.0); Mean Corpuscular Volume 93.9 fL (80.0-100.0); Monocytes % (auto) 9.7 % (0.0-12.0); Neutrophils # (auto) 8.5 10 ^3/uL (1.6-8.6); Neutrophils % (auto) 80.3 % (37.0-80.0); Nucleated Red Blood Cells % 0.1 %; Red Blood Cells 4.75 10^6/uL (4.5-5.90); Red Cell Distribution Width 13.6 % (11.8-14.3); White Blood Cell 10.6 10^3/uL (4.4-10.8)
[2021-01-01 05:52] LABS: Alanine Aminotransferase 20 U/L (16-61); Albumin 2.9 g/dL (3.4-5.0); Anion Gap 11 (5-15); BUN/Creatinine Ratio 13.9; Blood Urea Nitrogen 11 mg/dL (7-18); Calcium 7.8 mg/dL (8.5-10.1); Carbon Dioxide 12 mmol/L (21-32); Chloride 115 mmol/L (98-107); GFR African American 156 mL/min; GFR Non-African American 129 mL/min; Glucose 116 mg/dL (74-106); Potassium 3.5 mmol/L (3.5-5.1); Sodium 138 mmol/L (136-145)
[2021-01-01 05:59] LABS: Alkaline Phosphatase 93 U/L (45-117); Aspartate Aminotransferase 14 U/L (15-37); Bilirubin, Total 0.4 mg/dL (0.2-1.0); Total Protein 6.2 g/dL (6.4-8.2)
[2021-01-01] MEDS: InsuLIN R (HUMAN) 100 UNITS in SODIUM CHL 0.9% 99 ML IV SCH (05:59)
[2021-01-01] MEDS: cefTRIAXone 1GM/50ML D5W 50 ML IV SCH (08:43)
[2021-01-01] MEDS ORDERED: INSULIN LANTUS (GLARGINE) 1 /0.01ml (100units/ml) SC SCH ×2 (10:00)
[2021-01-01] MEDS ORDERED: METF-372 PO (11:15)
[2021-01-01] MEDS ORDERED: CHOL20002 PO (11:15)
[2021-01-01] MEDS ORDERED: INSU100I44 SC (11:15)
[2021-01-01] MEDS ORDERED: INSU1INJ19 SC (11:15)
[2021-01-01 17:42] LABS: BUN/Creatinine Ratio 14.3; Calcium 7.7 mg/dL (8.5-10.1); Magnesium 2.3 mg/dL (1.6-2.6); Phosphorus 1.2 mg/dL (2.5-4.90)
[2021-01-01] MEDS ORDERED: POTASSIUM PHOSPHATE 44 MEQ in D5W 5% 250 ML IV ONE (18:15)
[2021-01-01] MEDS ORDERED: DEXTROSE (50%) 50ML SYRG IV PRN (18:15)
[2021-01-01] MEDS: POTASSIUM CHL 20MEQ/100ML 100 ML IV SCH ×2 (18:55→20:56)
[2021-01-01] MEDS: InsuLIN REG 1unit/0.01ml Soln (100units/ml) SC SCH (22:00)
[2021-01-02] MEDS: SODIUM CHLORIDE 0.9% 1,000 ML IV SCH ×2 (00:20→07:00)
[2021-01-02] MEDS: InsuLIN R (HUMAN) 100 UNITS in SODIUM CHL 0.9% 99 ML IV SCH (04:59)
[2021-01-02] MEDS: ACCU-CHEK COMFORT CURVE STRIP VI SCH (06:19)
[2021-01-02] MEDS: InsuLIN REG 1unit/0.01ml Soln (100units/ml) SC SCH (06:20)
[2021-01-02 07:17] LABS: Basophils # (auto) 0 10 ^3/uL (0-0.2); Basophils % (auto) 0.3 % (0.0-2.0); Eosinophils # (auto) 0.2 10 ^3/uL (0-0.8); Eosinophils % (auto) 2.9 % (0.0-7.0); Hematocrit 42.9 % (41.0-53.0); Hemoglobin 14.9 g/dL (13.5-17.5); Lymphocytes # (auto) 1.4 10 ^3/uL (0.4-5.4); Lymphocytes % (auto) 22.3 % (10.0-50.0); Mean Corpuscular Hemoglobin 32.3 pg (28.0-32.0); Mean Corpuscular Hgb Conc. 34.7 g/dL (32.0-36.0); Monocytes # (auto) 0.7 10 ^3/uL (0-1.3); Monocytes % (auto) 10.8 % (0.0-12.0); Neutrophils % (auto) 63.7 % (37.0-80.0); Nucleated Red Blood Cells % 0.1 %; Red Blood Cells 4.62 10^6/uL (4.5-5.90); Red Cell Distribution Width 13.4 % (11.8-14.3); White Blood Cell 6.3 10^3/uL (4.4-10.8)
[2021-01-02 07:30] LABS: Potassium 3.4 mmol/L (3.5-5.1)
[2021-01-02 07:36] LABS: BUN/Creatinine Ratio 14.3; Calcium 7.7 mg/dL (8.5-10.1); Magnesium 2.2 mg/dL (1.6-2.6)
[2021-01-02 08:00] VITALS: BP 111/74
[2021-01-02] MEDS: cefTRIAXone 1GM/50ML D5W 50 ML IV SCH (09:00)
[2021-01-02] MEDS ORDERED: POTASSIUM EFFERVESENT TAB 25 MEQ PO ONE (10:15)
== END 2021-01-02 10:59 | disposition home or self-care (01) | DRG 638 ==
LOC: ER 03:14 → TELE 08:26
PROVIDERS: ADMIT Internal Medicine; ATTEND Internal Medicine
DX: E10.10 Type 1 diabetes mellitus with ketoacidosis without coma (principal); N17.9 Acute kidney failure, unspecified; D72.829 Elevated white blood cell count, unspecified; F12.90 Cannabis use, unspecified, uncomplicated; F17.210 Nicotine dependence, cigarettes, uncomplicated; E87.5 Hyperkalemia; Z20.822 Contact with and (suspected) exposure to COVID-19; Z79.4 Long term (current) use of insulin; Z83.3 Family history of diabetes mellitus; Z72.89 Other problems related to lifestyle
CPT/HCPCS: 36415; 36600; 71045; 80048; 80053; 81001; 82010; 82150; 82805; 82962; 83036; 83605; 83690; 83735; 84100; 85007; 85025; 85027; 85610; 87040; 87426; 93005; 96361; 96374; 96375; 99291; G0378; J0696; J1815; J2405; J3480; J7060

== ENCOUNTER 2021-02-19 18:40 | Inpatient (IN) | payer BC, MEDICAID ==
[~2021-02-19] VITALS: Ht 172.7 cm; Wt 59.0 kg
[~2021-02-19 18:40] MED LIST changes: +CHOL20002 PO; -FAMO20TA10 PO; -INSLISPI SC; +INSU100I44 SC; -INSU100I57 SC; +INSU1INJ19 SC; +METF-372 PO; -NYS5LQ MT
[2021-02-19] MEDS ORDERED: InsuLIN REG 1unit/0.01ml Soln (100units/ml) IV ONE (20:45)
[2021-02-19] MEDS ORDERED: ONDANSETRON HCL 4 MG/2 ML VIAL IV ONE (21:15)
[2021-02-19 21:26] LABS: Hematocrit 55.6 % (41.0-53.0); Hemoglobin 17.2 g/dL (13.5-17.5); Mean Corpuscular Hemoglobin 31.1 pg (28.0-32.0); Mean Corpuscular Hgb Conc. 30.9 g/dL (32.0-36.0); Mean Corpuscular Volume 100.5 fL (80.0-100.0); Red Blood Cells 5.53 10^6/uL (4.5-5.90); Red Cell Distribution Width 13.7 % (11.8-14.3)
[2021-02-19 21:31] LABS: Albumin 4.9 g/dL (3.4-5.0); Calcium 9.1 mg/dL (8.5-10.1); INR 0.94 (0.9-1.15)
[2021-02-19 21:34] LABS: Bilirubin, Total 0.4 mg/dL (0.2-1.0); Total Protein 8.6 g/dL (6.4-8.2)
[2021-02-19 21:35] LABS: White Blood Cell 38.2 10^3/uL (4.4-10.8)
[2021-02-19 21:37] LABS: Basophils % (manual) 0 (0.0-2.0); Blast Cells 0; Eosinophils % (manual) 0 (0-7); Myelocytes % 0; Promyelocytes % 0; Reactive Lymphocytes 0
[2021-02-19 21:38] LABS: Lactic Acid w/Reflex 3.9 mmol/L (0.4-2.0)
[2021-02-19 21:58] LABS: Potassium 6.4 mmol/L (3.5-5.1)
[2021-02-19] MEDS ORDERED: SODIUM BICARBONATE 8.4 % INJ 50ML VIAL IV ONE (22:00)
[2021-02-19] MEDS ORDERED: INSULIN LANTUS (GLARGINE) 1 /0.01ml (100units/ml) SC ONE (22:00)
[2021-02-19] MEDS ORDERED: InsuLIN R (HUMAN) 100 UNITS in SODIUM CHL 0.9% 99 ML IV SCH (22:00)
[2021-02-19] MEDS ORDERED: SODIUM CHLORIDE 0.9% 1,000 ML IV ONE (22:00)
[2021-02-19] MEDS ORDERED: DEXTROSE (50%) 50ML SYRG IV PRN (22:00)
[2021-02-19] MEDS: ACCU-CHEK COMFORT CURVE STRIP VI SCH (22:48)
[2021-02-19 22:59] LABS: Urine Bacteria NONE SEEN /hpf (None Seen); Urine Blood TRACE /uL (Negative); Urine WBC 2 /hpf (0 - 3)
[2021-02-19 23:31] LABS: Band Neutrophils % (manual) 12; Monocytes % (manual) 5 (0-12)
[2021-02-19 23:32] LABS: Lymphocytes % (manual) 22 (10.0-50.0); Metamyelocytes % 2
[2021-02-19] MEDS: SODIUM CHLORIDE 0.9% 1,000 ML IV SCH (23:55)
[2021-02-20] MEDS ORDERED: MORPHINE SULFATE 4 MG/ML SYR/VIAL IV PRN
[2021-02-20] MEDS ORDERED: NITROGLYCERIN 0.4 MG SL TAB SL PRN
[2021-02-20] MEDS ORDERED: ONDANSETRON HCL 4 MG/2 ML VIAL IV PRN
[2021-02-20] MEDS: ACCU-CHEK COMFORT CURVE STRIP VI SCH ×14 (00:13→19:31)
[2021-02-20] MEDS ORDERED: SODIUM BICARBONATE 8.4 % INJ 50ML VIAL IV ONE (00:57)
[2021-02-20] MEDS: SODIUM BICARBONATE 50ML VIAL 150 ML in D5W 5% 1,000 ML IV SCH ×2 (01:21→06:50)
[2021-02-20 01:26] LABS: Calcium 7.8 mg/dL (8.5-10.1)
[2021-02-20] MEDS ORDERED: SODIUM CHLORIDE 0.9% 1,000 ML IV SCH ×3 (02:00→07:00)
[2021-02-20] MEDS ORDERED: D5W/SOD CHLO 0.9% 1,000 ML IV SCH ×2 (08:15→11:00)
[2021-02-20 08:20] LABS: Hematocrit 43.9 % (41.0-53.0); Hemoglobin 15.5 g/dL (13.5-17.5); Mean Corpuscular Hemoglobin 32.1 pg (28.0-32.0); Mean Corpuscular Hgb Conc. 35.4 g/dL (32.0-36.0); Mean Corpuscular Volume 90.5 fL (80.0-100.0); Red Blood Cells 4.84 10^6/uL (4.5-5.90); Red Cell Distribution Width 12.7 % (11.8-14.3); White Blood Cell 20.7 10^3/uL (4.4-10.8)
[2021-02-20 08:31] LABS: Potassium 3.6 mmol/L (3.5-5.1)
[2021-02-20 08:56] LABS: Basophils % (manual) 0 (0.0-2.0); Blast Cells 0; Eosinophils % (manual) 0 (0-7); Metamyelocytes % 0; Myelocytes % 0; Promyelocytes % 0; Reactive Lymphocytes 0
[2021-02-20 08:59] LABS: BUN/Creatinine Ratio 16.2; Calcium 8.1 mg/dL (8.5-10.1)
[2021-02-20 09:07] LABS: Band Neutrophils % (manual) 3; Lymphocytes % (manual) 10 (10.0-50.0); Monocytes % (manual) 8 (0-12)
[2021-02-20] MEDS ORDERED: INSULIN LANTUS (GLARGINE) 1 /0.01ml (100units/ml) SC SCH (10:00)
[2021-02-20] MEDS ORDERED: POTASSIUM CHLORIDE 20 MEQ, LIDOCAINE 1% (LOCAL ANESTH.) 2 ML in SODIUM CHL 0.9% 100 ML IV PRN (11:00)
[2021-02-20 12:17] LABS: BUN/Creatinine Ratio 14.9; Calcium 7.9 mg/dL (8.5-10.1); Potassium 3.6 mmol/L (3.5-5.1)
[2021-02-20 12:41] LABS: Alcohol, Urine < 3.0 mg/dL (0-10); Amphetamine Screen, Urine NEGATIVE (NEGATIVE); Barbiturate Scree,Urine NEGATIVE (NEGATIVE); Benzodiazephine Screen, Urine NEGATIVE (NEGATIVE); Cannabinoid Screen, Urine NEGATIVE (NEGATIVE); Cocaine Screen, Urine NEGATIVE (NEGATIVE); Opiate Scree,Urine NEGATIVE (NEGATIVE); Phencyclidine Screen, Urine NEGATIVE (NEGATIVE)
[2021-02-20] MEDS: SODIUM CHLORIDE 0.9% 1,000 ML IV SCH ×4 (14:00→20:57)
[2021-02-20 19:13] LABS: BUN/Creatinine Ratio 16.2; Potassium 3.5 mmol/L (3.5-5.1)
[2021-02-20] MEDS ORDERED: DEXTROSE (50%) 50ML SYRG IV PRN (20:15)
[2021-02-20] MEDS: INSULIN LANTUS (GLARGINE) 1 /0.01ml (100units/ml) SC SCH (22:14)
[2021-02-20 22:42] LABS: Calcium 7.6 mg/dL (8.5-10.1); Potassium 3.4 mmol/L (3.5-5.1)
[2021-02-21] MEDS: ACCU-CHEK COMFORT CURVE STRIP VI SCH ×3 (00:15→12:28)
[2021-02-21] MEDS: InsuLIN REG 1unit/0.01ml Soln (100units/ml) SC SCH ×3 (00:15→12:21)
[2021-02-21 02:43] LABS: Potassium 3.3 mmol/L (3.5-5.1)
[2021-02-21 02:44] LABS: BUN/Creatinine Ratio 18.2; Calcium 7.9 mg/dL (8.5-10.1)
[2021-02-21] MEDS: SODIUM CHLORIDE 0.9% 1,000 ML IV SCH ×2 (04:06→12:58)
[2021-02-21 05:00] VITALS: BP 108/48
[2021-02-21 08:00] VITALS: BP 124/71
[2021-02-21 08:33] LABS: Basophils # (auto) 0 10 ^3/uL (0-0.2); Basophils % (auto) 0.4 % (0.0-2.0); Eosinophils # (auto) 0 10 ^3/uL (0-0.8); Eosinophils % (auto) 0.5 % (0.0-7.0); Hematocrit 40.4 % (41.0-53.0); Lymphocytes # (auto) 1.3 10 ^3/uL (0.4-5.4); Lymphocytes % (auto) 14.5 % (10.0-50.0); Mean Corpuscular Hemoglobin 31.7 pg (28.0-32.0); Mean Corpuscular Hgb Conc. 34.6 g/dL (32.0-36.0); Mean Corpuscular Volume 91.6 fL (80.0-100.0); Monocytes # (auto) 0.8 10 ^3/uL (0-1.3); Monocytes % (auto) 9.4 % (0.0-12.0); Neutrophils # (auto) 6.7 10 ^3/uL (1.6-8.6); Neutrophils % (auto) 75.2 % (37.0-80.0); Nucleated Red Blood Cells % 0.1 %; Red Blood Cells 4.41 10^6/uL (4.5-5.90); Red Cell Distribution Width 12.8 % (11.8-14.3)
[2021-02-21 08:51] LABS: Calcium 8.3 mg/dL (8.5-10.1); Magnesium 2.9 mg/dL (1.6-2.6); Potassium 3.2 mmol/L (3.5-5.1)
[2021-02-21 08:53] LABS: BUN/Creatinine Ratio 19.2
[2021-02-21 09:00] VITALS: BP 124/71
[2021-02-21] MEDS: INSULIN LANTUS (GLARGINE) 1 /0.01ml (100units/ml) SC SCH (10:33)
== END 2021-02-21 16:30 | disposition home or self-care (01) | DRG 420 ==
LOC: ER 18:40 → EDBD 18:40 → TELE 23:51 → TELE-WESTW 02-21 02:05
PROVIDERS: ADMIT Hospitalist; ATTEND Hospitalist
DX: E10.10 Type 1 diabetes mellitus with ketoacidosis without coma (principal); N17.0 Acute kidney failure with tubular necrosis; D72.829 Elevated white blood cell count, unspecified; F12.90 Cannabis use, unspecified, uncomplicated; Z72.89 Other problems related to lifestyle; F17.210 Nicotine dependence, cigarettes, uncomplicated; Z20.822 Contact with and (suspected) exposure to COVID-19; F19.10 Other psychoactive substance abuse, uncomplicated; Z79.4 Long term (current) use of insulin; Z83.3 Family history of diabetes mellitus
CPT/HCPCS: 36415; 36600; 71045; 80048; 80053; 80307; 81001; 82010; 82805; 82962; 83605; 83690; 83735; 83930; 84100; 85007; 85025; 85027; 85610; 87081; 87426; 93005; 96365; 96375; 99291; G0378; J1815; J2405

== ENCOUNTER 2021-11-24 12:40 | Inpatient (IN) | payer OTHER, MEDICAID ==
[~2021-11-24] VITALS: Ht 172.7 cm; Wt 55.7 kg
[2021-11-24] MEDS ORDERED: INSULIN LANTUS (GLARGINE) 1 /0.01ml (100units/ml) SC ONE (12:45)
[2021-11-24] MEDS ORDERED: DEXTROSE (50%) 50ML SYRG IV PRN (12:45)
[2021-11-24 13:15] LABS: Basophils # (auto) 0 10 ^3/uL (0-0.2); Eosinophils # (auto) 0 10 ^3/uL (0-0.8); Eosinophils % (auto) 0.2 % (0.0-7.0); Hematocrit 53.5 % (41.0-53.0); Lymphocytes # (auto) 0.9 10 ^3/uL (0.4-5.4)
[2021-11-24 13:17] LABS: Basophils % (auto) 0.3 % (0.0-2.0); Hemoglobin 17.5 g/dL (13.5-17.5); Lymphocytes % (auto) 7.4 % (10.0-50.0); Mean Corpuscular Hemoglobin 30.9 pg (28.0-32.0); Mean Corpuscular Hgb Conc. 32.7 g/dL (32.0-36.0); Mean Corpuscular Volume 94.5 fL (80.0-100.0); Monocytes # (auto) 0.2 10 ^3/uL (0-1.3); Neutrophils # (auto) 11.2 10 ^3/uL (1.6-8.6); Neutrophils % (auto) 90.1 % (37.0-80.0); Nucleated Red Blood Cells % 0.1 %; Red Blood Cells 5.66 10^6/uL (4.5-5.90); Red Cell Distribution Width 13.3 % (11.8-14.3); White Blood Cell 12.4 10^3/uL (4.4-10.8)
[2021-11-24 13:36] LABS: BUN/Creatinine Ratio 12.5; Calcium 8.3 mg/dL (8.5-10.1); Magnesium 1.9 mg/dL (1.6-2.6); Phosphorus 3.9 mg/dL (2.5-4.90)
[2021-11-24 13:44] LABS: Potassium 5.6 mmol/L (3.5-5.1)
[2021-11-24] MEDS: SODIUM CHLORIDE 0.9% 1,000 ML IV SCH ×2 (13:58→16:22)
[2021-11-24] MEDS: InsuLIN R (HUMAN) 100 UNITS in SODIUM CHL 0.9% 99 ML IV SCH ×2 (14:02→20:02)
[2021-11-24 14:05] LABS: Urine Bacteria NONE SEEN /hpf (None Seen); Urine Blood Negative /uL (Negative); Urine Mucus FEW (None Seen); Urine Specific Gravity 1.027 (1.001-1.035); Urine WBC 1 /hpf (0 - 3)
[2021-11-24] MEDS: ACCU-CHEK COMFORT CURVE STRIP VI SCH ×7 (14:08→22:34)
[2021-11-24] MEDS ORDERED: ONDANSETRON HCL 4 MG/2 ML VIAL IV PRN (15:15)
[2021-11-24] MEDS ORDERED: SODIUM CHLORIDE 0.9% 1,000 ML IV SCH ×3 (15:30→18:45)
[2021-11-24 16:22] LABS: Alcohol, Urine < 3.0 mg/dL (0-10); Amphetamine Screen, Urine NEGATIVE (NEGATIVE); Barbiturate Scree,Urine NEGATIVE (NEGATIVE); Benzodiazephine Screen, Urine NEGATIVE (NEGATIVE); Cannabinoid Screen, Urine POSITIVE (NEGATIVE); Cocaine Screen, Urine NEGATIVE (NEGATIVE); Opiate Scree,Urine NEGATIVE (NEGATIVE); Phencyclidine Screen, Urine NEGATIVE (NEGATIVE)
[2021-11-24 19:39] LABS: BUN/Creatinine Ratio 10.1; Calcium 7.1 mg/dL (8.5-10.1); Potassium 4.7 mmol/L (3.5-5.1)
[2021-11-24] MEDS: D5W/SOD CHL 0.45% 1,000 ML IV SCH (20:47)
[2021-11-25] MEDS: ACCU-CHEK COMFORT CURVE STRIP VI SCH ×13 (00:01→22:02)
[2021-11-25 01:23] LABS: BUN/Creatinine Ratio 9.6; Calcium 7.2 mg/dL (8.5-10.1)
[2021-11-25 05:26] LABS: Basophils # (auto) 0 10 ^3/uL (0-0.2); Basophils % (auto) 0.2 % (0.0-2.0); Eosinophils # (auto) 0 10 ^3/uL (0-0.8); Eosinophils % (auto) 0.1 % (0.0-7.0); Hematocrit 45.6 % (41.0-53.0); Hemoglobin 15.1 g/dL (13.5-17.5); Lymphocytes # (auto) 1.8 10 ^3/uL (0.4-5.4); Lymphocytes % (auto) 16.8 % (10.0-50.0); Mean Corpuscular Hemoglobin 30.1 pg (28.0-32.0); Mean Corpuscular Hgb Conc. 33.1 g/dL (32.0-36.0); Mean Corpuscular Volume 91.1 fL (80.0-100.0); Monocytes # (auto) 0.8 10 ^3/uL (0-1.3); Monocytes % (auto) 7.8 % (0.0-12.0); Neutrophils # (auto) 7.9 10 ^3/uL (1.6-8.6); Neutrophils % (auto) 75.1 % (37.0-80.0); Nucleated Red Blood Cells % 0.3 %; Red Blood Cells 5.01 10^6/uL (4.5-5.90); Red Cell Distribution Width 13.1 % (11.8-14.3); White Blood Cell 10.5 10^3/uL (4.4-10.8)
[2021-11-25 05:49] LABS: Calcium 7.5 mg/dL (8.5-10.1); Potassium 3.9 mmol/L (3.5-5.1)
[2021-11-25 05:53] LABS: BUN/Creatinine Ratio 9.3
[2021-11-25] MEDS: D5W/SOD CHL 0.45% 1,000 ML IV SCH ×2 (05:53→15:13)
[2021-11-25] MEDS: NICOTINE 7MG/24HR TOPICAL PATCH TD SCH (09:58)
[2021-11-25] MEDS ORDERED: INSULIN LANTUS (GLARGINE) 1 /0.01ml (100units/ml) SC SCH (10:00)
[2021-11-25 16:50] LABS: Albumin 3.2 g/dL (3.4-5.0); Calcium 7.4 mg/dL (8.5-10.1); Magnesium 1.9 mg/dL (1.6-2.6); Potassium 3.9 mmol/L (3.5-5.1)
[2021-11-25 16:53] LABS: BUN/Creatinine Ratio 8.6; Bilirubin, Total 0.6 mg/dL (0.2-1.0); Total Protein 5.9 g/dL (6.4-8.2)
[2021-11-25] MEDS ORDERED: POTASSIUM PHOSPHATE 26.4 MEQ in SODIUM CHL 0.9% 100 ML IV ONE (17:15)
[2021-11-25] MEDS ORDERED: DEXTROSE (50%) 50ML SYRG IV PRN (18:00)
[2021-11-25] MEDS: InsuLIN REG 1unit/0.01ml Soln (100units/ml) SC SCH (22:09)
[2021-11-26] VITALS (7 sets, daily range): BP systolic 110–133; BP diastolic 62–85
[2021-11-26 05:30] LABS: BUN/Creatinine Ratio 17.9; Calcium 7.9 mg/dL (8.5-10.1); Magnesium 1.9 mg/dL (1.6-2.6); Phosphorus 2.4 mg/dL (2.5-4.90); Potassium 3.3 mmol/L (3.5-5.1)
[2021-11-26] MEDS: ACCU-CHEK COMFORT CURVE STRIP VI SCH ×4 (06:44→22:34)
[2021-11-26] MEDS: InsuLIN REG 1unit/0.01ml Soln (100units/ml) SC SCH ×4 (06:45→22:38)
[2021-11-26] MEDS: NICOTINE 7MG/24HR TOPICAL PATCH TD SCH (09:51)
[2021-11-26] MEDS ORDERED: INSULIN LANTUS (GLARGINE) 1 /0.01ml (100units/ml) SC SCH (10:00)
[2021-11-26] MEDS ORDERED: POTASSIUM CHL 20 Meq TABLET PO ONE (11:00)
[2021-11-26] MEDS ORDERED: MAGNESIUM OXIDE 400 MG TAB PO ONE (11:00)
[2021-11-26] MEDS ORDERED: POTASSIUM PHOSPHATE 22 MEQ in SODIUM CHL 0.9% 100 ML IV ONE (11:00)
[2021-11-26] MEDS ORDERED: ERGOCALCIFEROL 50,000 UNIT(1.25MG) CAP PO SCH (12:15)
[2021-11-26] MEDS: INSULIN LANTUS (GLARGINE) 1 /0.01ml (100units/ml) SC SCH (22:39)
[2021-11-27 05:00] VITALS: BP 112/63
[2021-11-27] MEDS: ACCU-CHEK COMFORT CURVE STRIP VI SCH ×2 (06:18→11:30)
[2021-11-27] MEDS: InsuLIN REG 1unit/0.01ml Soln (100units/ml) SC SCH ×2 (06:18→12:51)
[2021-11-27 09:00] VITALS: BP 111/57
[2021-11-27] MEDS ORDERED: MAGNESIUM OXIDE 400 MG TAB PO SCH (10:00)
[2021-11-27] MEDS: NICOTINE 7MG/24HR TOPICAL PATCH TD SCH (10:00)
[2021-11-27] MEDS: INSULIN LANTUS (GLARGINE) 1 /0.01ml (100units/ml) SC SCH (10:29)
[2021-11-27 11:31] LABS: Albumin 3.2 g/dL (3.4-5.0); Calcium 8.4 mg/dL (8.5-10.1); Potassium 3.7 mmol/L (3.5-5.1)
[2021-11-27 11:35] LABS: BUN/Creatinine Ratio 22.4; Bilirubin, Total 0.4 mg/dL (0.2-1.0); Total Protein 5.8 g/dL (6.4-8.2)
[2021-11-27 13:00] VITALS: BP 118/80
[2021-11-27] MEDS ORDERED: ERGO1CAP23 PO (13:45)
== END 2021-11-27 15:00 | disposition home or self-care (01) | DRG 639 ==
LOC: EDBD 12:40 → ER 12:40 → OVERFLOW 15:18 → CENTRAL 11-25 23:42
PROVIDERS: ADMIT Registered Nurse; ATTEND Internal Medicine
DX: E10.10 Type 1 diabetes mellitus with ketoacidosis without coma (principal); F12.90 Cannabis use, unspecified, uncomplicated; F17.210 Nicotine dependence, cigarettes, uncomplicated; D72.829 Elevated white blood cell count, unspecified; E55.9 Vitamin D deficiency, unspecified; Z20.822 Contact with and (suspected) exposure to COVID-19
CPT/HCPCS: 36415; 36600; 80048; 80053; 80307; 81001; 82010; 82306; 82805; 82962; 83036; 83735; 83930; 84100; 84443; 85025; 96361; 96365; 96372; G0378; J1815

== ENCOUNTER 2022-10-31 07:04 | Inpatient (IN) | payer MEDICAID, OTHER ==
[~2022-10-31] VITALS: Ht 172.7 cm; Wt 57.5 kg
[~2022-10-31 07:04] MED LIST changes: -CHOL20002 PO; +ERGO1CAP23 PO; -INSU100I44 SC; +INSU100I54 SC; -METF-372 PO
[2022-10-31] MEDS ORDERED: PROCHLORPERAZINE EDISYLATE 5 MG/ML 2ML VIAL IV ONE (07:45)
[2022-10-31] MEDS ORDERED: SODIUM CHLORIDE 0.9% 1,000 ML IV ONE (07:45)
[2022-10-31] MEDS ORDERED: PANTOPRAZOLE 40 MG/10 ML VIAL INJ IV ONE (07:45)
[2022-10-31 08:00] VITALS: RESP 20; O2SAT 98
[2022-10-31 08:28] LABS: Basophils # (auto) 0 10 ^3/uL (0-0.2); Basophils % (auto) 0.3 % (0.0-2.0); Eosinophils # (auto) 0 10 ^3/uL (0-0.8); Lymphocytes # (auto) 0.5 10 ^3/uL (0.4-5.4); Monocytes # (auto) 0.4 10 ^3/uL (0-1.3); Monocytes % (auto) 4.6 % (0.0-12.0); Neutrophils # (auto) 7.2 10 ^3/uL (1.6-8.6); White Blood Cell 8.1 10^3/uL (4.4-10.8)
[2022-10-31 08:30] LABS: Hemoglobin 19.9 g/dL (13.5-17.5); Lymphocytes % (auto) 6.6 % (10.0-50.0); Mean Corpuscular Hemoglobin 31.6 pg (28.0-32.0); Mean Corpuscular Hgb Conc. 33.7 g/dL (32.0-36.0); Mean Corpuscular Volume 93.8 fL (80.0-100.0); Neutrophils % (auto) 88.5 % (37.0-80.0); Nucleated Red Blood Cells % 0.2 %; Red Blood Cells 6.29 10^6/uL (4.5-5.90); Red Cell Distribution Width 13.2 % (11.8-14.3)
[2022-10-31 08:35] LABS: Alanine Aminotransferase 16 U/L (7-40); Albumin 5.7 g/dL (3.2-4.8); Alkaline Phosphatase 132 U/L (46-116); Anion Gap 20.5 (5-15); Aspartate Aminotransferase 16 U/L (13-40); BUN/Creatinine Ratio 10.9 (10.0-20.0); Bilirubin, Total 0.6 mg/dL (0.2-1.0); Blood Urea Nitrogen 15 mg/dL (9-23); Calcium 10.1 mg/dL (8.5-10.1); Carbon Dioxide 12.5 mmol/L (20-30); Chloride 94 mmol/L (98-107); Glucose 393 mg/dL (74-106); Sodium 127 mmol/L (136-145)
[2022-10-31 09:14] LABS: Potassium 5.7 mmol/L (3.5-5.1)
[2022-10-31] MEDS ORDERED: SODIUM BICARBONATE 8.4 % INJ 50ML VIAL IV ONE ×4 (09:45→16:00)
[2022-10-31] MEDS ORDERED: CALCIUM GLUC 1,000mg/50ml-NS 50 ML IV ONE (09:45)
[2022-10-31] MEDS ORDERED: InsuLIN REG 1unit/0.01ml Soln (100units/ml) IV ONE (10:00)
[2022-10-31] MEDS ORDERED: INSULIN LANTUS (GLARGINE) 1 /0.01ml (100units/ml) SC ONE (10:00)
[2022-10-31] MEDS ORDERED: InsuLIN R (HUMAN) 100 UNITS in SODIUM CHL 0.9% 99 ML IV SCH (10:00)
[2022-10-31] MEDS ORDERED: DEXTROSE (50%) 50ML SYRG IV PRN ×3 (10:00→23:15)
[2022-10-31 10:06] LABS: Urine Bacteria NONE SEEN /hpf (None Seen); Urine Blood Negative /uL (Negative); Urine Clarity Clear (Clear); Urine Color Colorless (Yellow); Urine Protein, UAD 1+ (Negative); Urine Specific Gravity 1.027 (1.001-1.035); Urine Urobilinogen Normal (Negative); Urine WBC 1 /hpf (0 - 3); Urine pH 5.5 (5.0-8.0)
[2022-10-31] MEDS: ACCU-CHEK COMFORT CURVE STRIP VI SCH ×9 (10:30→22:34)
[2022-10-31 11:22] VITALS: PULSE 58; RESP 20; O2SAT 98
[2022-10-31] MEDS: D5W/SOD CHLO 0.9% 1,000 ML IV SCH ×2 (14:28→20:55)
[2022-10-31 15:04] LABS: Base Excess -14.2 mmol/L (-2.0-2.0)
[2022-10-31 15:05] LABS: Alanine Aminotransferase 11 U/L (7-40); Albumin 4.4 g/dL (3.2-4.8); Alkaline Phosphatase 99 U/L (46-116); Anion Gap 17.00001 (5-15); Aspartate Aminotransferase 8 U/L (13-40); BUN/Creatinine Ratio 13.1 (10.0-20.0); Blood Urea Nitrogen 13 mg/dL (9-23); Calcium 8.4 mg/dL (8.5-10.1); Chloride 105 mmol/L (98-107); Potassium 5.1 mmol/L (3.5-5.1)
[2022-10-31 15:06] LABS: Bilirubin, Total 0.4 mg/dL (0.2-1.0)
[2022-10-31] MEDS ORDERED: ONDANSETRON HCL 4 MG/2 ML VIAL IV PRN (15:15)
[2022-10-31] MEDS ORDERED: MORPHINE SULFATE INJ 2 MG/ml SYRG IV PRN (15:15)
[2022-10-31] MEDS ORDERED: DOCUSATE SOD 100 MG CAP PO PRN (15:15)
[2022-10-31 15:35] LABS: Glucose 213 mg/dL (74-106); Sodium 132 mmol/L (136-145)
[2022-10-31 15:58] LABS: Phosphorus 4.3 mg/dL (2.4-5.1)
[2022-10-31 16:01] LABS: Basophils # (auto) 0 10 ^3/uL (0-0.2); Eosinophils # (auto) 0 10 ^3/uL (0-0.8); Hemoglobin 17.8 g/dL (13.5-17.5); Monocytes # (auto) 0.6 10 ^3/uL (0-1.3); White Blood Cell 6.8 10^3/uL (4.4-10.8)
[2022-10-31 16:03] LABS: Basophils % (auto) 0.1 % (0.0-2.0); Hematocrit 53.6 % (41.0-53.0); Mean Corpuscular Hemoglobin 30.5 pg (28.0-32.0); Mean Corpuscular Hgb Conc. 33.2 g/dL (32.0-36.0); Mean Corpuscular Volume 92.1 fL (80.0-100.0); Monocytes % (auto) 9.4 % (0.0-12.0); Neutrophils # (auto) 5.1 10 ^3/uL (1.6-8.6); Neutrophils % (auto) 75.5 % (37.0-80.0); Nucleated Red Blood Cells % 0.3 %; Red Blood Cells 5.82 10^6/uL (4.5-5.90)
[2022-10-31 16:13] LABS: Chloride 104 mmol/L (98-107); Potassium 5.2 mmol/L (3.5-5.1); Sodium 131 mmol/L (136-145)
[2022-10-31 16:14] LABS: Anion Gap 15.1 (5-15); Calcium 8.4 mg/dL (8.5-10.1); Carbon Dioxide 11.9 mmol/L (20-30)
[2022-10-31 16:19] LABS: Blood Urea Nitrogen 14 mg/dL (9-23); Glucose 236 mg/dL (74-106)
[2022-10-31] MEDS ORDERED: SODIUM BICARBONATE 50ML VIAL 100 ML in SOD CHL 0.45% 1,000 ML IV ONE (16:30)
[2022-10-31] MEDS ORDERED: NICOTINE 14 MG/24HR TOPICAL PATCH TD ONE (17:44)
[2022-10-31] MEDS: NICOTINE 14 MG/24HR TOPICAL PATCH TD SCH (17:48)
[2022-10-31 19:15] VITALS: PULSE 54; RESP 20; O2SAT 98
[2022-10-31 19:40] LABS: Base Excess -7.9 mmol/L (-2.0-2.0)
[2022-10-31 22:01] LABS: Alanine Aminotransferase 11 U/L (7-40); Albumin 4.3 g/dL (3.2-4.8); Alkaline Phosphatase 96 U/L (46-116); Anion Gap 9.8 (5-15); Aspartate Aminotransferase 9 U/L (13-40); BUN/Creatinine Ratio 11.6 (10.0-20.0); Bilirubin, Total 0.5 mg/dL (0.2-1.0); Blood Urea Nitrogen 11 mg/dL (9-23); Calcium 8.7 mg/dL (8.7-10.4); Carbon Dioxide 17.2 mmol/L (20-30); Chloride 106 mmol/L (98-107); Glucose 105 mg/dL (74-106); Potassium 3.9 mmol/L (3.5-5.1); Sodium 133 mmol/L (136-145); Total Protein 6.6 g/dL (5.7-8.2)
[2022-11-01] MEDS: ACCU-CHEK COMFORT CURVE STRIP VI SCH ×6 (00:18→20:23)
[2022-11-01] MEDS: InsuLIN REG 1unit/0.01ml Soln (100units/ml) SC SCH ×6 (00:21→20:23)
[2022-11-01] MEDS: D5W/SOD CHLO 0.9% 1,000 ML IV SCH ×4 (03:36→23:35)
[2022-11-01 05:22] VITALS: RESP 20
[2022-11-01 05:32] LABS: Basophils # (auto) 0 10 ^3/uL (0-0.2); Basophils % (auto) 0.6 % (0.0-2.0); Eosinophils # (auto) 0 10 ^3/uL (0-0.8); Eosinophils % (auto) 0.8 % (0.0-7.0); Hematocrit 48.3 % (41.0-53.0); Hemoglobin 16.3 g/dL (13.5-17.5); Lymphocytes # (auto) 1.1 10 ^3/uL (0.4-5.4); Lymphocytes % (auto) 20.5 % (10.0-50.0); Mean Corpuscular Hemoglobin 30.9 pg (28.0-32.0); Mean Corpuscular Hgb Conc. 33.9 g/dL (32.0-36.0); Mean Corpuscular Volume 91.4 fL (80.0-100.0); Monocytes # (auto) 0.6 10 ^3/uL (0-1.3); Monocytes % (auto) 12.5 % (0.0-12.0); Neutrophils # (auto) 3.4 10 ^3/uL (1.6-8.6); Neutrophils % (auto) 65.6 % (37.0-80.0); Nucleated Red Blood Cells % 0.2 %; Red Blood Cells 5.28 10^6/uL (4.5-5.90); Red Cell Distribution Width 12.9 % (11.8-14.3); White Blood Cell 5.2 10^3/uL (4.4-10.8)
[2022-11-01 05:42] LABS: Alanine Aminotransferase 10 U/L (7-40); Albumin 3.8 g/dL (3.2-4.8); Alkaline Phosphatase 77 U/L (46-116); Anion Gap 11.4 (5-15); Aspartate Aminotransferase 14 U/L (13-40); BUN/Creatinine Ratio 12.8 (10.0-20.0); Bilirubin, Total 0.5 mg/dL (0.2-1.0); Blood Urea Nitrogen 11 mg/dL (9-23); Calcium 8.2 mg/dL (8.5-10.1); Carbon Dioxide 16.6 mmol/L (20-30); Chloride 106 mmol/L (98-107); Glucose 182 mg/dL (74-106); Potassium 3.8 mmol/L (3.5-5.1); Sodium 134 mmol/L (136-145)
[2022-11-01 08:00] VITALS: PULSE 58; RESP 24; O2SAT 99
[2022-11-01] MEDS: NICOTINE 14 MG/24HR TOPICAL PATCH TD SCH (10:00)
[2022-11-01] MEDS: INSULIN LANTUS (GLARGINE) 1 /0.01ml (100units/ml) SC SCH (10:14)
[2022-11-01 10:29] LABS: Chloride 105 mmol/L (98-107); Potassium 3.6 mmol/L (3.5-5.1); Sodium 136 mmol/L (136-145)
[2022-11-01 10:31] LABS: Anion Gap 13.6 (5-15); Calcium 8.7 mg/dL (8.5-10.1); Carbon Dioxide 17.4 mmol/L (20-30)
[2022-11-01 10:36] LABS: BUN/Creatinine Ratio 14.6 (10.0-20.0); Blood Urea Nitrogen 13 mg/dL (9-23); Glucose 216 mg/dL (74-106)
[2022-11-01 17:00] VITALS: PULSE 58; O2SAT 99
[2022-11-01 20:00] VITALS: PULSE 68; RESP 17
[2022-11-01 22:00] VITALS: BP 130/75; PULSE 77; RESP 16; TEMP 98.3; O2SAT 100
[2022-11-02] MEDS: InsuLIN REG 1unit/0.01ml Soln (100units/ml) SC SCH ×4 (00:46→13:18)
[2022-11-02] MEDS: ACCU-CHEK COMFORT CURVE STRIP VI SCH ×4 (00:46→12:00)
[2022-11-02 05:00] VITALS: BP 127/79; PULSE 61; RESP 16; TEMP 98.3; O2SAT 96
[2022-11-02] MEDS: D5W/SOD CHLO 0.9% 1,000 ML IV SCH (06:15)
[2022-11-02 08:00] VITALS: BP 159/90; PULSE 73; PULSE 87; RESP 20; TEMP 98.5; O2SAT 95
[2022-11-02] MEDS: INSULIN LANTUS (GLARGINE) 1 /0.01ml (100units/ml) SC SCH (10:27)
[2022-11-02] MEDS: NICOTINE 14 MG/24HR TOPICAL PATCH TD SCH (10:46)
[2022-11-02 13:00] VITALS: BP 125/75; PULSE 67; RESP 18; TEMP 98.4; O2SAT 100
[2022-11-02] MEDS ORDERED: INSU100I54 SC (13:25)
[2022-11-02] MEDS ORDERED: INSU1INJ19 SC (13:25)
[2022-11-02 16:48] VITALS: BP 130/81; PULSE 73; RESP 18; TEMP 98.3; O2SAT 100
== END 2022-11-02 17:00 | disposition home or self-care (01) | DRG 638 ==
LOC: EDBD 07:04 → ER 07:04 → TELE 15:29 → TELE-WESTW 11-01 17:02
PROVIDERS: ADMIT Nurse Practitioner Family; ATTEND Nurse Practitioner Family
DX: E10.10 Type 1 diabetes mellitus with ketoacidosis without coma (principal); E87.1 Hypo-osmolality and hyponatremia; N17.9 Acute kidney failure, unspecified; E86.0 Dehydration; E87.5 Hyperkalemia; F12.90 Cannabis use, unspecified, uncomplicated; F17.210 Nicotine dependence, cigarettes, uncomplicated; Z71.6 Tobacco abuse counseling
CPT/HCPCS: 36415; 36600; 74176; 80048; 80053; 81001; 82010; 82805; 82962; 83036; 83735; 83930; 84100; 85025; C9113; G0378; J1815